=== PATIENT | male | born 1975 | race Caucasian/White ===

== ENCOUNTER → 2016-09-22 | Outpatient (CLI) | payer OTHER ==
--- NOTE | ~2016-09-22 | MR17 ---
[facility] A Service of [place] & [facility] RADIOLOGY TEXT RESULTS PATIENT: DEAN LEONARD LOCATION: [facility] : 73 UNIT #: [id number] AGE: [address]: Zeus Truong MD SEX: M ORDER DR: [id number] [address] [address] [id number] MR#: [id number] Acc #: [id number] NAME: DEAN LEONARD : 1975 SEX: M STUDY DATE/TIME: 09/22/2016 9:19 UNIT: [facility] ROOM: STUDY DESCRIPTION: MR Brain WWo Contrast Attending Physician: Zeus Truong M.D. Referring Physician: Zeus Truong M.D. Ordering Physician: Zeus Truong M.D. Primary Care Physician: Zeus Truong M.D. MRI CENTER REPORT This report is preliminary unless electronic signature is present. EXAM MRI of the brain with and without contrast 09/22/2016 COMPARISON STUDIES None. HISTORY Headaches. Confusion. Trouble spelling and speaking words for less than 6 weeks. TECHNIQUE Multisequence, multiplanar imaging of the brain was obtained with and without contrast. 20 cc of MultiHance administered intravenously. FINDINGS Diffuse age-appropriate parenchymal volume is seen. Single, less than 5 mm, nonenhancing hyperintense T2 signal lesion is noted anterior to the superior right sylvian fissure, along the subcortical white matter of the right frontal operculum. No acute stroke, space occupying mass, mass effect, midline shift, or hydrocephalus. No evidence of hemorrhage or enhancing lesion. Mild nasal septal deviation to the right. Tiny right and small left maxillary sinus mucous retention cysts are present. IMPRESSION 1. Nonspecific single, less than 5 mm, hyperintense T2 signal focus is seen in the anterolateral right frontal lobe, anterior to the superior aspect of the right sylvian fissure. It is of uncertain clinical significance. It could be related to minimal chronic migraine or chronic microvascular ischemic change. 2. No acute stroke, hydrocephalus, hemorrhage or enhancing mass. 3. Tiny right and small left maxillary sinus mucous retention cyst, benign. STS. [facility] A Service of [place] & [facility] RADIOLOGY TEXT RESULTS PATIENT: DEAN LEONARD LOCATION: [facility] : 73 UNIT #: [id number] AGE: [address]: Zeus Truong MD SEX: M ORDER DR: Dictated by... Ginette Cho M.D. THIS IS AN ELECTRONICALLY VERIFIED REPORT Ginette Cho M.D. at 09/25/2016 7:53 PM CPR/pcl TD: 09/22/2016 22:32 JOB #: [id number] MRI CENTER REPORT Page 1 of 1
== END | disposition home or self-care (01) ==
LOC: SMRI 09:01
DX: R41.82 Altered mental status, unspecified (principal); R90.89 Other abnormal findings on diagnostic imaging of central nervous system
CPT/HCPCS: 70553; A9581